=== PATIENT | male | born 1965 | race Caucasian/White ===

== ENCOUNTER → 2018-06-04 | Outpatient (CLI) | payer OTHER ==
--- NOTE | 2018-06-04 17:06 | PCVCIMAG ---
APPROVED REPORT Study performed: 06/04/2018 16:02:29 Exam: Stress Echocardiogram Indication: Dyspnea on exertion, HTN, HLP, Fam hx CAD Patient Location: Echo lab Stress Nurse: Wen Baker RN Status: routine Ht: 6 ft 1 in HR: 71 bpm BP: 126/86 mmHg Rhythm: NSR Procedure The patient underwent an Exercise Stress Test using the Axel Protocol. Blood pressure, heart rate, and EKG were monitored. An Echocardiogram was performed by processing technician in four stages in quad fashion. At peak stress, four selected images were obtained and placed side by side with resting images for comparison. Stress Test Details Stress Test: Exercise stress testing was performed using a Axel protocol. HR Resting HR: 71 bpmMax Heart Rate (APMHR): 168 bpm Max HR Achieved: 179 bpmTarget HR (85% APMHR): 142 bpm % of APMHR: 106 Recovery HR: 100 bpm HR response to stress: Normal HR response to stress BP Resting BP: 126/86 mmHg Max BP: 206/80 mmHg Recovery BP: 146/74 mmHg ECG Resting ECG: Sinus Rhythm Stress ECG: Sinus Rhythm ST Change: Normal Maximum ST Deviation: 0 mm Arrhythmia: rare isolated PVCs Recovery ECG: Sinus Rhythm Recovery ST Change: Normal Recovery ST Deviation: 0 mm Recovery Arrhythmia: None Clinical Reason for Termination: Maximal effort Stress Symptoms: Dyspnea Exercise duration: 10 min 48 sec Highest Stage Achieved: Stage 4: 4.2 mph at 16% grade. Exercise capacity: 13.4 METs Overall Exercise Capacity for Age: Good Scale: Active Angina Score: None Stress ECG Conclusion Clinical: Non-ischemic ECG: Non-ischemic Mar treadmill score predicts low risk for adverse myocardial events. Mar Treadmill Score is 10.0 which is Low risk. Pre-Stress Echo The resting Echocardiogram showed normal left ventricular contractility with an estimated Ejection Fraction of about >55%. Normal wall motion in all segments on baseline images. Post-Stress Echo The stress Echocardiogram showed normal left ventricular contractility with an estimated Ejection Fraction of about 65-70%. Normal augmentation of wall motion in all segments on post stress images. Clinical No clinical or ECG evidence for ischemia. Conclusion Clinical Response: Non-ischemic Stress ECG Response: Non-ischemic Stress Echo Images: Non-ischemic The left ventricle is normal in size and wall thickness in both the rest and stress images. Normal stress echocardiogram with maximal exercise stress. Other Information Study Quality: Adequate <Conclusion> The left ventricle is normal in size and wall thickness in both the rest and stress images. Normal stress echocardiogram with maximal exercise stress.
== END | disposition home or self-care (01) ==
LOC: PCVCIMAG 16:35
PROVIDERS: ATTEND Internal Medicine
DX: R06.09 Other forms of dyspnea (principal); I10 Essential (primary) hypertension
CPT/HCPCS: 93325; 93351